=== PATIENT | male | born 1945 | race Caucasian/White ===

== ENCOUNTER 2016-09-03 06:40 | Observation (INO) | payer MEDICARE ==
[2016-09-02 10:49] VITALS: BP 161/98
[2016-09-02 12:05] LABS: ASPARTATE AMINO TRANSFERASE 18 U/L (15-37); BLOOD UREA NITROGEN 17 mg/dL (7-18)
[~2016-09-03] VITALS: Ht 172.7 cm; Wt 85.5 kg
[~2016-09-03 06:40] MED LIST: LISI-170 PO; PRED20TA PO
[2016-09-03] MEDS ORDERED: SODIUM CHLORIDE 0.9% 1,000 ML IV SCH (06:55)
[2016-09-03] MEDS ORDERED: ASPI-621 PO (07:07)
[2016-09-03] MEDS ORDERED: ISOPROTERENOL 0.2MG/ML, 5ML ONE (08:17)
[2016-09-03] MEDS ORDERED: LIDOCAINE 2%, 20ML ONE (08:17)
[2016-09-03] MEDS ORDERED: FENTANYL PF 100 MCG/2ML ONE (08:17)
[2016-09-03] MEDS ORDERED: ADENOSINE 6 MG/2 ML ONE (08:17)
[2016-09-03] MEDS ORDERED: HEPARIN 1,000 UNITS/ML, 10ML ONE (08:17)
[2016-09-03] MEDS ORDERED: MIDAZOLAM 1 MG/ML, 5ML ONE (08:17)
[2016-09-03] MEDS ORDERED: NITROGLYCERIN 0.4 MG BOTTLE (25 TABS) SL ONE (09:14)
[2016-09-03] MEDS ORDERED: ACETAMINOPHEN 325 MG TABLET PO PRN (10:00)
[2016-09-03] MEDS ORDERED: ZOLPIDEM 5MG TABLET PO PRN (10:00)
[2016-09-03] MEDS ORDERED: PROTAMINE SULFATE 10 MG/ML, 5ML ONE (10:22)
[2016-09-03] MEDS: LISINOPRIL 20 MG TABLET PO SCH (14:41)
[2016-09-03 14:56] VITALS: BP 137/87
[2016-09-03 21:22] VITALS: BP 143/77
[2016-09-04 02:50] VITALS: BP 131/86
[2016-09-04 07:37] VITALS: BP 138/85
[2016-09-04] MEDS: LISINOPRIL 20 MG TABLET PO SCH (07:59)
[2016-09-04] MEDS ORDERED: ASPIRIN 81 MG TABLET EC PO SCH (09:00)
== END 2016-09-04 09:55 | disposition home or self-care (01) ==
LOC: CACL 06:40 → ORIP 09:55 → 5SO 13:08 → DCLOUNGE 09-04 09:38
PROVIDERS: ADMIT Internal Medicine Cardiovascular Disease; ATTEND Internal Medicine Cardiovascular Disease
DX: I47.1 Supraventricular tachycardia (principal); R00.2 Palpitations
CPT/HCPCS: 36415; 71020; 80053; 85025; 85347; 85610; 85730; 93005; 93462; 93613; 93621; 93653; 93662; 99156; 99157; C1730; C1759; C1766; C1893; C1894; C2630; G0378; J1644; J2250; J2720; J3010; J3490; J7512; J0153

== ENCOUNTER → 2017-09-16 | Outpatient (CLI) | payer MEDICARE ==
[~2017-09-16] MED LIST changes: +ASPI-621 PO; +OMNIPAQUE 350 MG/ML, 100ML BOTTLE ONE
[2017-09-16 11:46] LABS: BASOPHILS # (AUTO) 0.06 x10^3/uL (0-0.1); BASOPHILS % (AUTO) 1 % (0-1); EOSINOPHILS # (AUTO) 1.08 x10^3/uL (0-0.4); EOSINOPHILS % (AUTO) 12 % (1-7); LYMPHOCYTES # (AUTO) 3.12 x10^3/uL (1-3.4); LYMPHOCYTES % (AUTO) 33 % (22-44); MD NO; MEAN CORPUSCULAR HEMOGLOBIN 34.1 pg (27.5-34.5); MEAN CORPUSCULAR HGB CONC 33.8 g/dL (33.2-36.2); MEAN CORPUSCULAR VOLUME 100.7 fL (81-97); MEAN PLATELET VOLUME 8.1 fL (7.4-10.4); MONOCYTES # (AUTO) 0.68 x10^3/uL (0.2-0.8); MONOCYTES % (AUTO) 7 % (2-9); NEUTROPHILS # (AUTO) 4.51 x10^3/uL (1.8-6.8); NEUTROPHILS % (AUTO) 48 % (42-75); PLATELET COUNT 319 x10^3/uL (130-400); RED BLOOD COUNT 5.16 x10^6/uL (4.38-5.82)
[2017-09-16 11:57] LABS: ALANINE AMINOTRANSFERASE 21 U/L (12-78); ALBUMIN 3.8 g/dL (3.4-5.0); ANION GAP 5 mmol/L (5-15); CALCIUM 9.1 mg/dL (8.5-10.1); CHLORIDE 107 mmol/L (98-107); CREATININE 1.22 mg/dL (0.7-1.3)
[2017-09-16 11:59] LABS: ALKALINE PHOSPHATASE 107 U/L (45-117); BILIRUBIN,TOTAL 0.7 mg/dL (0.2-1.0); TOTAL PROTEIN 8.3 g/dL (6.4-8.2)
== END | disposition home or self-care (01) ==
LOC: RAD 11:31
PROVIDERS: ATTEND Nurse Practitioner Family
DX: I10 Essential (primary) hypertension (principal); I20.9 Angina pectoris, unspecified; I47.1 Supraventricular tachycardia
CPT/HCPCS: 36415; 71275; 80053; 85025; Q9967